=== PATIENT | male | born 2000 | race Caucasian/White ===

== ENCOUNTER 2022-03-29 05:12 | Emergency (ER) | payer SELFPAY ==
[~2022-03-29] VITALS: Ht 175.3 cm
--- NOTE | 2022-03-29 05:12 | NUR ---
PT BIB [facility], PREBOOK. TAKEN TO CHAIR
[2022-03-29 05:16] VITALS: BP 133/78
[2022-03-29 05:27] VITALS: BP 133/78
--- NOTE | 2022-03-29 05:38 | NUR ---
Dr. Aponte examining patient.
[2022-03-29 05:54] VITALS: BP 133/78
--- NOTE | 2022-03-29 06:00 | NUR ---
Patient discharged with v/s stable. Written and verbal after care instructions given and explained. Patient verbalized understanding. Police with in custody. All questions addressed prior to discharge. Advised to follow up with PMD.
== END 2022-03-29 06:00 ==
LOC: MED 05:12
DX: M79.10 Myalgia, unspecified site (principal)
CPT/HCPCS: 99283

== ENCOUNTER 2022-03-29 07:35 | Emergency (ER) | payer OTHER ==
[~2022-03-29] VITALS: Ht 162.6 cm; Wt 68.0 kg
[2022-03-29 07:40] VITALS: BP 148/88
[2022-03-29] MEDS ORDERED: IBUPROFEN 800 MG TAB PO ONE (07:40)
--- NOTE | 2022-03-29 07:40 | NUR ---
PATIENT PRESENTS TO ED WITH RIGHT HIP PAIN . DENIES N/V/D; SKIN IS PINK/WARM/DRY; AAOX4 WITH EVEN AND STEADY GAIT; LUNGS CLEAR BL; HR EVEN AND REGULAR; PT DENIES ANY FEVER, CP, SOB, OR COUGH AT THIS TIME; P VSS; PATIENT POSITIONED FOR COMFORT;. ER MD MADE AWARE OF PT STATUS.
--- NOTE | 2022-03-29 07:55 | NUR ---
PT SENT TO XRAY WITH [facility] VIA W/C
[2022-03-29 08:20] VITALS: BP 140/77
--- NOTE | 2022-03-29 08:20 | NUR ---
PATIENT BIB POLICE DEPT. PATIENT EXAMINED BY DR. VERNON. PATIENT MEDICALLY CLEARED AND RELEASED IN CUSTODY IN STABLE CONDITION. ORIGINAL PRE-BOOK FORM GIVEN TO OFFICER.
--- NOTE | 2022-03-29 08:24 | NUR ---
Patient discharged with v/s stable. Written and verbal after care instructions given and explained. Patient verbalized understanding. Accompanied by Police and ambulated with steady gait. All questions addressed prior to discharge. Advised to follow up with PMD.
== END 2022-03-29 08:24 ==
LOC: MED 07:35
DX: S76.011A Strain of muscle, fascia and tendon of right hip, initial encounter (principal); V49.88XA Car occupant (driver) (passenger) injured in other specified transport accidents, initial encounter; Y93.89 Activity, other specified; Y92.89 Other specified places as the place of occurrence of the external cause; Y99.8 Other external cause status
CPT/HCPCS: 73502; 99283